=== PATIENT | male | born 1970 | race Caucasian/White ===

== ENCOUNTER 2017-03-28 11:52 | Inpatient (IN) | payer SELFPAY ==
[2017-03-28] MEDS ORDERED: MORPHINE IV ONE (12:35)
--- NOTE | 2017-03-28 12:43 | Emergency Department Report ---
HPI - General Chief Complaint: Dyspnea/Respdistress Time Seen by Provider: 03/28/17 12:11 - HPI HPI: This is a 47-year-old male presents to the emergency department by EMS from home with complaint of shortness of breath. The patient has a history of stage III pancreatic cancer and recurrent left long effusions. He was supposed to be getting ready to go to the [facility] physician, his oncologist, for a thoracentesis when he became very nauseated and ran to the bathroom to vomit. At that point he became short of breath. EMS was called and found the patient to have a pulse ox on room air of 88%. He was placed on a nonrebreather and his sats went up to a normal level. Getting home hospice care but he is a full code at this time. No recent travel or sick contacts at home. The patient used to be on blood thinners but no longer takes them. He denies any chest pain. He denied any fever but does present with a low-grade fever here. He did not take anything for symptoms prior to presentation. ED Past Medical Hx - Past Medical History Hx of Cancer: Yes (Stage 3 pancreatic) - Surgical History Past Surgical History?: Yes Additional Surgical History: part of pancreas - Social History Smoking Status: Former Smoker Substance Use Type: None - Medications Home Medications: Home Medications Medication Instructions Recorded Confirmed Last Taken Type Amoxicillin/K Clav Tab [Augmentin 1 each PO Q8HR 03/28/17 03/28/17 03/27/17 History 500 MG TAB] Morphine Sulfate [Morphine Sulfate 15 mg PO Q4H 03/28/17 03/28/17 03/27/17 History ER] Prochlorperazine [Compazine] 10 mg PO Q8HR 03/28/17 03/28/17 03/27/17 History ED Review of Systems ROS: Stated complaint: SHABBIR Other details as noted in HPI Comment: All other systems reviewed and negative Constitutional: denies: chills, diaphoresis Eyes: denies: eye pain, eye discharge, vision change ENT: denies: ear pain, throat pain Respiratory: shortness of breath Cardiovascular: denies: chest pain Gastrointestinal: nausea, vomiting. denies: abdominal pain Genitourinary: denies: urgency, dysuria Musculoskeletal: denies: back pain, joint swelling, arthralgia Skin: denies: rash, lesions Neurological: denies: headache, weakness, paresthesias Physical Exam - Physical Exam Vital Signs: Vital Signs 03/28/17 11:57 Temperature 100.6 F H Pulse Rate 140 H Respiratory 33 H Rate Blood Pressure 129/80 O2 Sat by Pulse 100 Oximetry Physical Exam: GENERAL: Patient is ill-appearing. Cachectic. HEENT: Normocephalic. Atraumatic. Extraocular motions are intact. Patient has moist mucous membranes. Pupils equal reactive to light bilaterally. NECK: Supple. Trachea is midline. CHEST/LUNGS: There are no lung sounds heard to the left hemithorax. There is tachypnea and some supraclavicular accessory muscle use. There is respiratory distress noted. HEART/CARDIOVASCULAR: Regular. There is moderate tachycardia. There is no gallop rub or murmur. ABDOMEN: Abdomen is soft, nontender. Patient has normal bowel sounds. There is no abdominal distention. SKIN: Skin is warm and dry. NEURO: The patient is awake, alert. The patient is cooperative. The patient has no focal neurologic deficits. MUSCULOSKELETAL: There is no tenderness or deformity. There is no evidence of acute injury. ED Course Vital Signs 03/28/17 11:57 Temperature 100.6 F H Pulse Rate 140 H Respiratory 33 H Rate Blood Pressure 129/80 O2 Sat by Pulse 100 Oximetry - Consultations Consultation #1: I had multiple conversations with the radiologist. First the thought was that the lung was atelectatic and a CT was recommended. CT that showed concern for empyema. At this point radiology did not feel that they are able to do a ultrasound-guided thoracentesis as the chest tube was not large enough for draining empyema. I then spoke with vascular surgeon construction contractor who also says that they do not usually put in large bore chest tubes and recommended surgery. I spoke to the general surgeon on-call, Dr. Roberts, who says that he does not do thoracic surgery and does not do chest tubes. I spoke to the itinerant teacher assistant on-call, Dr. Medrano, who would have recommended a diagnostic thoracentesis but at this point says he will be in contact with the admitting hospitalist on how to proceed. 03/28/17 20:05 ED Medical Decision Making - Lab Data Result diagrams: 03/28/17 12:35 03/28/17 12:35 - EKG Data -: EKG Interpreted by Me EKG shows normal: sinus rhythm, axis, intervals, QRS complexes, ST-T waves Rate: tachycardia (138 bpm) - EKG Data When compared to previous EKG there are: previous EKG unavailable Interpretation: other (Sinus Tachycardia at 138 bpm) - Radiology Data Radiology results: report reviewed CT angiography of the chest including 3-D reconstructed images. History: Shortness of breath and elevated d-dimer. Findings: There is a huge left pleural effusion with associated compressive atelectasis of the left lung. There are multiple air bubbles throughout the pleural fluid collection suggesting the possibility of an empyema. Additionally, the CT numbers measure greater than water. Aerated lung is seen at the apex. There is no evidence of pulmonary emboli. There are numerous noncalcified pulmonary nodules throughout the right lung. There is mild right perihilar adenopathy. No pleural fluid is seen on the right. There are multiple bony lesions within the dorsal spine several of which are purely blastic, but several appear mixed with lytic components. No compression fractures are seen. Impression: 1. Large left pleural fluid collection containing air bubbles which is worrisome for empyema or complex fluid. Severe compressive atelectasis of the left lung is also present. 2. No evidence of pulmonary emboli. 3. Multiple diffuse right pulmonary nodules consistent with metastatic disease. 4. Multiple mixed lesions throughout the dorsal spine consistent with metastatic disease. Procedure(s): XR chest 1V ap Accession Number(s): [id number] cc: YULISSA MCNAMARA DO Fluoro Time In Minutes: Portable chest: SOB. The left chest is almost completely opaque. There is some lucency at the apex. No vascular markings noted. The right chest is generally clear although there may be mild vascular distention. The cardiac silhouette is obscured. These findings are new compared to prior exam in August 2015. Impression: The left pulmonary opacity may be due to consolidation or combination with effusion. - Medical Decision Making 47 year male presents with shortness of breath and hypoxia after having some nausea and vomiting on his way to get a thoracentesis done. He presents with the idea that he has a left-sided pleural effusion. Chest x-ray does show a adonay out left lung. Labs show a leukocytosis of 27,000 with bandemia and the patient has a fever concerning for sepsis. At first the concern was that it was just atelectasis of the lung so a CT was done for better differentiation as well as to rule out a PE. There was no pulmonary embolism but there is metastatic lesions seen to the thorax and spine from his pancreatic primary cancer and the effusion now appears to be more consistent with an empyema. This does not appear to be something that is able to be done by ultrasound- guided thoracentesis through interventional radiology. Patient was placed on Levaquin and eventually Zosyn. The patient was admitted to the hospitalist, Dr. Nova, who has taken over and will decide on consultations for any intervention for this empyema (continue with IV antibiotics and pain control. Once the patient was placed on a nonrebreather his respiratory distress improved if not resolved and he is now able to be on a nasal cannula without any hypoxia or return of his tachypnea or distress. - Differential Diagnosis malignancy, pleural effusion, CHF, emphysema, pneumonia Critical Care Time: Yes Critical care time in (mins) excluding proc time.: 35 Critical care attestation.: If time is entered above; I have spent that time in minutes in the direct care of this critically ill patient, excluding procedure time. Critical care time was spent on this patient and his initial evaluation, multiple re-evaluations, ordering and interpretation of labs, ordering and interpretation of imaging, discussion with 2 different radiologists, discussion with the itinerant teacher assistant, multiple discussions with family, discussion with the admitting hospitalist, and disposition planning. Critical Care Time: 35 minutes ED Disposition Clinical Impression: Empyema of lung Sepsis Qualifiers: Sepsis type: sepsis due to unspecified organism Qualified Code(s): A41.9 - Sepsis, unspecified organism Pancreatic cancer Qualifiers: Pancreatic malignancy location: unspecified Qualified Code(s): C25.9 - Malignant neoplasm of pancreas, unspecified Metastasis Qualifiers: Area of secondary neoplastic involvement: unspecified site Qualified Code(s): C79.9 - Secondary malignant neoplasm of unspecified site Leukocytosis Qualifiers: Leukocytosis type: bandemia Qualified Code(s): D72.825 - Bandemia Anemia Qualifiers: Anemia type: unspecified type Qualified Code(s): D64.9 - Anemia, unspecified Disposition: 09 OP ADMIT IP TO THIS HOSP Is pt being admited?: Yes Condition: Serious Referrals: PRIMARY CARE, [Primary Care Provider] - 3-5 Days Time of Disposition: 20:13
[2017-03-28] MEDS ORDERED: NACL 0.9% 1000 ML 1,000 ML ONE (12:49)
--- NOTE | 2017-03-28 12:49 | XRay Report ---
Portable chest: SOB. The left chest is almost completely opaque. There is some lucency at the apex. No vascular markings noted. The right chest is generally clear although there may be mild vascular distention. The cardiac silhouette is obscured. These findings are new compared to prior exam in August 2015. Impression: The left pulmonary opacity may be due to consolidation or combination with effusion.
--- NOTE | 2017-03-28 12:53 | Admit Criteria Form ---
Admission Criteria Documentation: PULMONARY DISEASE GRG Clinical Indications for Admission to Inpatient Care ( Place 'X' for any and all applicable criteria): Hospital admission is needed for appropriate care of the patient because of 1 or more of the following(1)(2): [ ]I. Impending or actual respiratory arrest. See Respiratory Failure GRG guideline for severe respiratory disease and long-term mechanical ventilation patients. (3)(4) (5) [ ]II. Severe airflow or ventilation abnormalities (not responsive to emergency and observation care treatment as appropriate) as indicated by 1 or more of the following (6)(7)(8)(9) : [ ]a) PCO2 greater than 42 mm Hg (5.6 kPa) and pH less than 7.35 (new) [ ]b) Documented PCO2 increased more than 5 mm Hg (0.7 kPa) from disease baseline [ ]c) Airflow measurements[A] less than 60% of previous best or predicted (eg, peak expiratory flow rate less than 300 L/min) despite intensive emergent treatment(B) [ ]d) Required respiratory treatments that are performable only in acute inpatient setting [X ]III. Severe respiratory findings (not responsive to emergency and observation care treatment as appropriate) including 1 or more of the following(6)(9)(10): [ X]a) Respiratory distress as indicated by ALL of the following(6)(11) : [X ]i) Patient with 1 or more of the following: [X ]1) Dyspnea (difficulty breathing) [ X]2) Tachypnea [ ]3) Abnormal breathing pattern (eg, chest retractions) [ ]4) Other evidence of difficulty breathing [X ]ii) Evidence of respiratory compromise indicated by 1 or more of the following: [X ]1) Hypoxemia [ ]2) Altered mental status [ ]3) Other evidence of respiratory compromise (eg, pulmonary edema on chest x-ray) [ ]b) Stridor [ ]c) Gross hemoptysis(12) [ ]d) Acute cyanosis [ ]IV. Chronic lung disease with severe deterioration (not responsive to emergency and observation care treatment as appropriate) as indicated by 1 or more of the following(7) (13): [ ]a) SaO2 5% below baseline in patient with chronic hypoxemia [ ]b) New requirement for supplemental oxygen to keep SaO2 at baseline or acceptable level [ ]c) Required supplemental oxygen performable only in acute inpatient setting [ ]d) Severe airflow or ventilation abnormalities [ ]e) Previouslymobile patient unable to walk between rooms [ ]f) Inability to eat or sleep due to dyspnea [ ]g) Altered mental status that is severe or persistent [ ]V. Empyema or lung abscess(14)(15) [ ]Vl. Severe atelectasis or lung collapse(16)(17) [ ][place]. Tuberculosis requiring inpatient treatment as indicated by 1 or more of the following(18)(19)(20)(21): [ ]a) Diagnosis suspected (eg, symptomatic patient from endemic area or in high-risk population, with abnormal chest imaging) and cannot be ruled out within observation care timeframe (ie, sputum analysis, nucleic acid amplification techniques not rapidly available or not diagnostic) [ ]b) Severely symptomatic patient (eg, Hypoxemia, Hemodynamic instability, Tachypnea) [ ]c) Lzngi-czoy-yteamqwsa infection suspected in newly diagnosed patient (eg, treatment regimen may require near-term adjustment) [ ]d) Newly diagnosed patient at high-risk of short-term deterioration (eg, HIV positive, frail, immunocompromised, chronic lung disease) [ ]e) High infectivity suspected (eg, laryngeal disease, cavitary pulmonary lesions, ongoing positivity of sputum) and 1 or more of the following: [ ]i) Unexposed household contacts at high risk (eg, immunocompromised, elderly, infants, chronic lung disease) [ ]ii) Patient unable or unwilling to avoid exposing others (eg, significant psychiatric disease, substance abuse, developmental disability) [ ]f) Complication of tuberculosis requiring inpatient treatment (eg , constrictive pericarditis, tubercular meningitis) [ ]g) Hospitalization mandated by public health authority (eg, patient continually noncompliant with directly observed therapy) [ ]VIII. High-risk pulmonary infection as indicated by 1 or more of the following(22)(23)(24)(25): [ ]a) Temperature less than 95 degrees F (35 degrees C) or greater than 103.1 degrees F (39.5 degrees C) [ ]b) Hemodynamic instability [ ]c) Immunocompromised patient (eg, AIDS, post transplant, neutropenic)(26)(27) [ ]d) History of severe COPD(28) [ ]e) History of severely symptomatic congestive heart failure(29) [ ]f) Other high-risk comorbidity (eg, poorly controlled diabetes, cirrhosis, chronic renal insufficiency) [ ]g) Hypoxemia [ ]h) severe stridor (30) [ ]i) Outpatient, observation, or recovery facility therapy has failed, is not appropriate, or is not feasible. [ ]IX. Complications of tracheostomy that remains after emergency or observation level care(31)(32)(33)(34) [ ]X. Respiratory complications of organ transplant (eg, rejection, respiratory failure, respiratory infection)(27) [ ]XI. Severe pulmonary arterial hypertension or pulmonary vascular disease requiring inpatient care indicated by 1 or more of the following(35)(36)(37)(38): [ ]a) Initiation or change of vasodilators (IV, subcutaneous, or inhaled) or other vasoactive medications needed [ ]b) IV anticoagulation needed (eg, immediate anticoagulation necessary, alternatives not appropriate) [ ]c) Arterial or pulmonary artery catheter monitoring needed due to infusion or other treatment [ ]XII. Cystic fibrosis requiring inpatient care as indicated by 1 or more of the following(39)(40): [ ]a) Severe exacerbation that does not respond to intensified home therapy(41) [ ]b) Severe exacerbation with patient unable to perform prescribed treatments at home [ ]c) Pneumonia [ ]d) Pneumothorax(42) [ ]e) Atelectasis [ ]f) Hemoptysis(43) [ ]XIII. Bronchiectasis requiring inpatient care as indicated by 1 or more of the following(44)(45): [ ]a) Respiratory distress [ ]b) Severe exacerbation and outpatient or observation care therapy has failed, is not appropriate, or is not feasible. [ ]XIV. Sarcoidosis requiring inpatient care as indicated by 1 or more of the following(46)(47)(48): [ ]a) Respiratory distress [ ]b) Cardiac involvement with arrhythmia(49) [ ]c) Outpatient or observation care therapy has failed, is not appropriate, or is not feasible. [ ]XV. Intestitial lung disease requiring inpatient care as indicated by 1 or more of the following(50)(51): [ ]a) Respiratory distress [ ]b) Severe exacerbation and outpatient or observation care therapy has failed, is not appropriate, or is not feasible [ ]XVI. Allergic pneumonitis requiring inpatient care as indicated by 1 or more of the following(52): [ ]a) Respiratory distress [ ]b) Acute eosinophilic pneumonia [ ]c) [place] Stephanie with cardiac involvement [ ]d) Outpatient or observation care therapy has failed, is not appropriate, or is not feasible [ ]XVIl. Severe right heart failure requiring inpatient care as indicated by 1 or more of the following(35)(53)(54): [ ]a) Respiratory distress [ ]b) Debilitating anasarca that remains after emergency or observation level care (eg, tissue [ ]c) breakdown with severe infection, inability to void due to edema) [C](41)(42)(43)(44) [ ]d) Hemodynamic instability [ ]e) Syncope [ ]f) Angina that requires inpatient care (eg, not treatable in emergency or observation level of care) [ ]g) Increasing organ failure (eg, liver congestion with significant and worsening or new elevation of transaminases) [ ]XVIll. Injury requiring inpatient care (medical) as indicated by 1 or more of the following(59)(60)(61) [ ]a) Significant inhalation injury (eg, smoke inhalation, other toxic inhalation)(62)(63)(64) [ ]b) Airway obstruction that remains or is unstable after emergency or observation level care(65)(66) [ ]c) Severe pain requiring acute inpatient management [ ]d) Lung contusion(67) [ ]e) Flail chest(68) [ ]f) Bronchial tree injury [ ]g) Air or fat emboli [ ]h) Other injury not treatable in emergency or observation level care (eg, hemothorax)(55) [ ]XlX. Pulmonary hemorrhage or significant hemoptysis(12)(43)(69) [ ]XXl. Complications of transplanted lung indicated by 1 or more of the following(70)(71) [ ]a) Acute graft rejection requiring inpatient management (eg, intravenous immunosuppression)(72)(73)(74) [ ]b) Failure of transplant lung as indicated by 1 or more of the following(75)(76): [ ]i) Anastomotic leak [ ]ii) Airway ischemia or necrosis [ ]iii) Airway fistula [ ]iv) Obstructing granulation tissue requiring intervention [ ]v) Bronchial stenosis or stricture requiring intervention [ ]vi) Tracheobronchomalacia requiring intervention [ ]vii) Severe airflow or ventilation abnormalities [ ]viii) Severe respiratory findings [ ]c) Infection requiring inpatient management (eg, Hemodynamic instability, need for intravenous antimicrobial treatment)(77)(78)(79)(80)(81)(82 [ ]d) Other complication of transplanted lung (eg, obliterative bronchiolitis, plastic bronchitis, thrombotic microangiopathy, constrictive pericarditis) requiring inpatient management(83)(84)(85)(86)(87) [ ]XXll. Inpatient palliative care needed.[D](88)(89)(90)(91) [X ]XXlll. Pulmonary Disease condition, symptom, or finding for which emergency and observation care have failed or are not considered appropriate. The original [facility] content created by [employer] has been revised. The portions of the content which have been revised are identified through the use of italic text or in bold, and [facility] [employer] has neither reviewed nor approved the modified material. All other unmodified content is copyright [facility]. Please see references footnoted in the original [facility] [employer] edition 2017 Admission Criteria Met: Yes
[2017-03-28] MEDS ORDERED: NACL 0.9% 1000 ML 1,000 ML IV ONE (12:59)
[2017-03-28 13:08] LABS: Mean Corpuscular HGB Conc 31 % (32-34); Mean Corpuscular Hemoglobin 32 pg (28-32); Mean Corpuscular Volume 104 fl (84-94); Platelet Count 167 K/mm3 (140-440); Red Blood Count 1.72 M/mm3 (3.65-5.03)
[2017-03-28 13:09] LABS: White Blood Count 27.1 K/mm3 (4.5-11.0)
[2017-03-28 13:14] LABS: Hemoglobin 5.5 gm/dl (11.8-15.2); Red Cell Distribution Width 33.2 % (13.2-15.2)
[2017-03-28 13:18] LABS: INR 1.62 (0.87-1.13)
[2017-03-28] MEDS ORDERED: LEVAQUIN 750MG/150ML 750 MG/150 ML BAG IV ONE (13:18)
[2017-03-28] MEDS ORDERED: NACL 0.9% 500 ML 500 ML IV ONE ×2 (13:18→21:41)
[2017-03-28 13:19] LABS: Partial Thromboplastin Time 34.3 Sec. (24.2-36.6)
[2017-03-28 13:50] LABS: Blastocytes % (Manual) 0 %
[2017-03-28 13:51] LABS: Anisocytosis 3+; Eosinophils % (Manual) 0 % (0.0-4.3); Polychromasia 1+
[2017-03-28 13:52] LABS: Schistocytes Few
[2017-03-28 13:53] LABS: Diff Status Complete
[2017-03-28 13:55] LABS: Chloride 99.6 mmol/L (98-107); Potassium 5.2 mmol/L (3.6-5.0); Sodium 135 mmol/L (137-145)
[2017-03-28 13:59] LABS: Albumin 2.4 g/dL (3.9-5); Alkaline Phosphatase 532 units/L (35-129)
[2017-03-28] MEDS ORDERED: NACL ONE (14:12)
[2017-03-28 14:34] LABS: Bilirubin,Urine SM (Negative); Blood,Urine SM (Negative); Ketones,Urine TR mg/dL (Negative); Leukocyte Esterase,Urine NEG (Negative); Mucus,Urine 1+ /HPF; Nitrite,Urine NEG (Negative)
[2017-03-28 14:49] LABS: Anion Gap 24 mmol/L; BUN/Creatinine Ratio 25.83; Blood Urea Nitrogen 31 mg/dL (9-20); Calcium 7.4 mg/dL (8.4-10.2); Carbon Dioxide 17 mmol/L (22-30)
[2017-03-28 14:55] LABS: Albumin/Globulin Ratio 0.6 %; Bilirubin,Direct 1.7 mg/dL (0-0.2); Bilirubin,Indirect 2.5 mg/dL; Total Protein 6.3 g/dL (6.3-8.2)
[2017-03-28 15:10] LABS: Glucose 148 mg/dL (75-100)
[2017-03-28 15:13] LABS: Alanine Aminotransferase 32 units/L (7-56)
--- NOTE | 2017-03-28 16:17 | Cat Scan Report ---
CT angiography of the chest including 3-D reconstructed images. History: Shortness of breath and elevated d-dimer. Findings: There is a huge left pleural effusion with associated compressive atelectasis of the left lung. There are multiple air bubbles throughout the pleural fluid collection suggesting the possibility of an empyema. Additionally, the CT numbers measure greater than water. Aerated lung is seen at the apex. There is no evidence of pulmonary emboli. There are numerous noncalcified pulmonary nodules throughout the right lung. There is mild right perihilar adenopathy. No pleural fluid is seen on the right. There are multiple bony lesions within the dorsal spine several of which are purely blastic, but several appear mixed with lytic components. No compression fractures are seen. Impression: 1. Large left pleural fluid collection containing air bubbles which is worrisome for empyema or complex fluid. Severe compressive atelectasis of the left lung is also present. 2. No evidence of pulmonary emboli. 3. Multiple diffuse right pulmonary nodules consistent with metastatic disease. 4. Multiple mixed lesions throughout the dorsal spine consistent with metastatic disease.
[2017-03-28] MEDS ORDERED: MOTRIN PO ONE ×2 (16:22→16:30)
[2017-03-28] MEDS ORDERED: ZOSYN/NS 4.5GM/100ML 4.5 GM/100 ML VIAL IV ONE (16:47)
[2017-03-28] MEDS ORDERED: NACL 0.9% 500 ML 500 ML ONE (18:38)
[2017-03-28] MEDS ORDERED: DULCOLAX PR PRN (21:32)
[2017-03-28] MEDS ORDERED: DILAUDID IV PRN ×2 (21:32→21:41)
[2017-03-28] MEDS ORDERED: ZOFRAN IV PRN (21:32)
[2017-03-28] MEDS ORDERED: MILK OF MAGNESIA PO PRN (21:32)
[2017-03-28] MEDS ORDERED: TYLENOL PO PRN (21:32)
--- NOTE | 2017-03-28 21:32 | History and Physical Report ---
History of Present Illness Date of examination: 03/28/17 Date of admission: 03/28/17 Chief complaint: Sob for couple of Hours History of present illness: HPI: This is a 47-year-old male presents to the emergency department by EMS from home with complaint of shortness of breath. The patient has a history of stage III pancreatic cancer and recurrent left long effusions. He was supposed to be getting ready to go to the [place] physician, his oncologist, for a thoracentesis when he became very nauseated and ran to the bathroom to vomit. At that point he became short of breath. EMS was called and found the patient to have a pulse ox on room air of 88%. He was placed on a nonrebreather and his sats went up to a normal level. Getting home hospice care but he is a full code at this time. No recent travel or sick contacts at home. The patient used to be on blood thinners but no longer takes them. He denies any chest pain. He denied any fever but does present with a low-grade fever here. He did not take anything for symptoms prior to presentation Past Medical History Hx of Cancer: Yes (Stage 3 pancreatic) - Surgical History Past Surgical History?: Yes Additional Surgical History: part of pancreas - Social History Smoking Status: Former Smoker Substance Use Type: None - Medications Home Medications: Home Medications Medication Instructions Recorded Confirmed Last Taken Type Amoxicillin/K Clav Tab [Augmentin 1 each PO Q8HR 03/28/17 03/28/17 03/27/17 History 500 MG TAB] Morphine Sulfate [Morphine Sulfate 15 mg PO Q4H 03/28/17 03/28/17 03/27/17 History ER] Prochlorperazine [Compazine] 10 mg PO Q8HR 03/28/17 03/28/17 03/27/17 History ROS: Stated complaint: SHABBIR Other details as noted in HPI Comment: All other systems reviewed and negative Constitutional: denies: chills, diaphoresis,Weight loss present Eyes: denies: eye pain, eye discharge, vision change ENT: denies: ear pain, throat pain Respiratory: shortness of breath Cardiovascular: denies: chest pain Gastrointestinal: nausea, vomiting. denies: abdominal pain Genitourinary: denies: urgency, dysuria Musculoskeletal: denies: back pain, joint swelling, arthralgia Skin: denies: rash, lesions Neurological: denies: headache, weakness, paresthesias Medications and Allergies Allergies Allergy/AdvReac Type Severity Reaction Status Date / Time No Known Allergies Allergy Unverified 08/18/15 19:34 Home Medications Medication Instructions Recorded Confirmed Last Taken Type Amoxicillin/K Clav Tab [Augmentin 1 each PO Q8HR 03/28/17 03/28/17 03/27/17 History 500 MG TAB] Morphine Sulfate [Morphine Sulfate 15 mg PO Q4H 03/28/17 03/28/17 03/27/17 History ER] Prochlorperazine [Compazine] 10 mg PO Q8HR 03/28/17 03/28/17 03/27/17 History Exam - Physical Exam Narrative exam: Cachectic - Constitutional Vitals: Temp Pulse Resp BP Pulse Ox 98.7 F 101 H 27 H 103/52 100 03/28/17 19:00 03/28/17 19:51 03/28/17 19:51 03/28/17 19:51 03/28/17 19:51 General appearance: Present: no acute distress, well-nourished - EENT Eyes: Present: PERRL ENT: hearing intact, clear oral mucosa - Neck Neck: Present: supple, normal ROM - Respiratory Respiratory effort: normal Respiratory: right: CTA, left: diminished - Cardiovascular Heart rate: 90 Rhythm: regular Heart Sounds: Present: S1 & S2. Absent: rub, click - Extremities Extremities: pulses symmetrical, No edema Peripheral Pulses: within normal limits - Abdominal General gastrointestinal: Present: soft, tender, distended, normal bowel sounds Male genitourinary: Present: normal - Rectal Rectal Exam: deferred - Integumentary Integumentary: Present: clear, warm, dry - Musculoskeletal Musculoskeletal: gait normal, strength equal bilaterally - Psychiatric Psychiatric: appropriate mood/affect, intact judgment & insight - Neurologic Neurologic: CNII-XII intact, moves all extremities Results - Labs CBC & Chem 7: 03/29/17 04:03 03/29/17 04:03 Labs: Laboratory Last Values WBC 27.1 K/mm3 (4.5-11.0) H 03/28/17 12:35 RBC 1.72 M/mm3 (3.65-5.03) L 03/28/17 12:35 Hgb 5.5 gm/dl (11.8-15.2) L* 03/28/17 12:35 Hct 18.0 % (35.5-45.6) L* 03/28/17 12:35 MCV 104 fl (84-94) H 03/28/17 12:35 MCH 32 pg (28-32) 03/28/17 12:35 MCHC 31 % (32-34) L 03/28/17 12:35 RDW 33.2 % (13.2-15.2) H 03/28/17 12:35 Plt Count 167 K/mm3 (140-440) 03/28/17 12:35 Add Manual Diff Complete 03/28/17 12:35 Total Counted 100 03/28/17 12:35 Seg Neutrophils % Weed Controller 03/28/17 12:35 Seg Neuts % (Manual) 71.0 % (40.0-70.0) H 03/28/17 12:35 Band Neutrophils % 25.0 % 03/28/17 12:35 Lymphocytes % (Manual) 1.0 % (13.4-35.0) L 03/28/17 12:35 Reactive Lymphs % (Man) 0 % 03/28/17 12:35 Monocytes % (Manual) 2.0 % (0.0-7.3) 03/28/17 12:35 Eosinophils % (Manual) 0 % (0.0-4.3) 03/28/17 12:35 Metamyelocytes % 1.0 % 03/28/17 12:35 Myelocytes % 0 % 03/28/17 12:35 Promyelocytes % 0 % 03/28/17 12:35 Blast Cells % 0 % 03/28/17 12:35 Nucleated RBC % 13.0 % (0.0-0.9) H 03/28/17 12:35 Seg Neutrophils # Man 19.2 K/mm3 (1.8-7.7) H 03/28/17 12:35 Band Neutrophils # 6.8 K/mm3 03/28/17 12:35 Lymphocytes # (Manual) 0.3 K/mm3 (1.2-5.4) L 03/28/17 12:35 Abs React Lymphs (Man) 0.0 K/mm3 03/28/17 12:35 Monocytes # (Manual) 0.5 K/mm3 (0.0-0.8) 03/28/17 12:35 Eosinophils # (Manual) 0.0 K/mm3 (0.0-0.4) 03/28/17 12:35 Basophils # (Manual) 0.0 K/mm3 (0.0-0.1) 03/28/17 12:35 Metamyelocytes # 0.3 K/mm3 03/28/17 12:35 Myelocytes # 0.0 K/mm3 03/28/17 12:35 Promyelocytes # 0.0 K/mm3 03/28/17 12:35 Blast Cells # 0.0 K/mm3 03/28/17 12:35 WBC Morphology Not Reportable 03/28/17 12:35 Hypersegmented Neuts Not Reportable 03/28/17 12:35 Hyposegmented Neuts Not Reportable 03/28/17 12:35 Hypogranular Neuts Not Reportable 03/28/17 12:35 Smudge Cells Not Reportable 03/28/17 12:35 Toxic Granulation Not Reportable 03/28/17 12:35 Toxic Vacuolation Not Reportable 03/28/17 12:35 Dohle Bodies Not Reportable 03/28/17 12:35 Pelger-Huet Anomaly Not Reportable 03/28/17 12:35 John Rods Not Reportable 03/28/17 12:35 Platelet Estimate Not Reportable 03/28/17 12:35 Clumped Platelets Not Reportable 03/28/17 12:35 Plt Clumps, EDTA Not Reportable 03/28/17 12:35 Large Platelets Not Reportable 03/28/17 12:35 Giant Platelets Not Reportable 03/28/17 12:35 Platelet Satelliting Not Reportable 03/28/17 12:35 Plt Morphology Comment Not Reportable 03/28/17 12:35 RBC Morphology Not Reportable 03/28/17 12:35 Dimorphic RBCs Yes 03/28/17 12:35 Polychromasia 1+ 03/28/17 12:35 Hypochromasia Not Reportable 03/28/17 12:35 Poikilocytosis Not Reportable 03/28/17 12:35 Anisocytosis 3+ 03/28/17 12:35 Microcytosis Not Reportable 03/28/17 12:35 Macrocytosis Not Reportable 03/28/17 12:35 Spherocytes Not Reportable 03/28/17 12:35 Pappenheimer Bodies Not Reportable 03/28/17 12:35 Sickle Cells Not Reportable 03/28/17 12:35 Target Cells Not Reportable 03/28/17 12:35 Tear Drop Cells Not Reportable 03/28/17 12:35 Ovalocytes Not Reportable 03/28/17 12:35 Helmet Cells Not Reportable 03/28/17 12:35 [place] Bodies Not Reportable 03/28/17 12:35 [place] Rings Not Reportable 03/28/17 12:35 Segun Cells Not Reportable 03/28/17 12:35 Bite Cells Not Reportable 03/28/17 12:35 Crenated Cell Not Reportable 03/28/17 12:35 Elliptocytes Not Reportable 03/28/17 12:35 Acanthocytes (Spur) Not Reportable 03/28/17 12:35 Rouleaux Not Reportable 03/28/17 12:35 Hemoglobin C Crystals Not Reportable 03/28/17 12:35 Schistocytes Few 03/28/17 12:35 Malaria parasites Not Reportable 03/28/17 12:35 [place] Bodies Not Reportable 03/28/17 12:35 Hem Pathologist Commnt No 03/28/17 12:35 PT 20.1 Sec. (12.2-14.9) H 03/28/17 12:35 INR 1.62 (0.87-1.13) H 03/28/17 12:35 APTT 34.3 Sec. (24.2-36.6) 03/28/17 12:35 D-Dimer > 71915 ng/mlDDU (0-234) H 03/28/17 12:35 Sodium 135 mmol/L (137-145) L 03/28/17 12:35 Potassium 5.2 mmol/L (3.6-5.0) H 03/28/17 12:35 Chloride 99.6 mmol/L (98-107) 03/28/17 12:35 Carbon Dioxide 17 mmol/L (22-30) L 03/28/17 12:35 Anion Gap 24 mmol/L 03/28/17 12:35 BUN 31 mg/dL (9-20) H 03/28/17 12:35 Creatinine 1.2 mg/dL (0.8-1.5) 03/28/17 12:35 Estimated GFR > 60 ml/min 03/28/17 12:35 BUN/Creatinine Ratio 25.83 % 03/28/17 12:35 Glucose 148 mg/dL (75-100) H 03/28/17 12:35 Lactic Acid 4.20 mmol/L (0.7-2.0) H* 03/28/17 13:28 Calcium 7.4 mg/dL (8.4-10.2) L 03/28/17 12:35 Total Bilirubin 4.20 mg/dL (0.1-1.2) H 03/28/17 12:35 Direct Bilirubin 1.7 mg/dL (0-0.2) H 03/28/17 12:35 Indirect Bilirubin 2.5 mg/dL 03/28/17 12:35 AST 99 units/L (5-40) H 03/28/17 12:35 ALT 32 units/L (7-56) 03/28/17 12:35 Alkaline Phosphatase 532 units/L (35-129) H 03/28/17 12:35 Ammonia 36.0 umol/L (25-60) 03/28/17 12:35 Troponin T < 0.010 ng/mL (0.00-0.029) 03/28/17 12:35 Total Protein 6.3 g/dL (6.3-8.2) 03/28/17 12:35 Albumin 2.4 g/dL (3.9-5) L 03/28/17 12:35 Albumin/Globulin Ratio 0.6 % 03/28/17 12:35 Urine Color [place] (Yellow) 03/28/17 13:53 Urine Turbidity Clear (Clear) 03/28/17 13:53 Urine pH 5.0 (5.0-7.0) 03/28/17 13:53 Ur Specific [place] 1.021 (1.003-1.030) 03/28/17 13:53 Urine Protein 30 mg/dl mg/dL (Negative) 03/28/17 13:53 Urine Glucose (UA) Neg mg/dL (Negative) 03/28/17 13:53 Urine Ketones Tr mg/dL (Negative) 03/28/17 13:53 Urine Blood Sm (Negative) 03/28/17 13:53 Urine Nitrite Neg (Negative) 03/28/17 13:53 Urine Bilirubin Sm (Negative) 03/28/17 13:53 Urine Ictotest Negative (Negative) 03/28/17 13:53 Urine Urobilinogen 4.0 mg/dL (<2.0) 03/28/17 13:53 Ur Leukocyte Esterase Neg (Negative) 03/28/17 13:53 Urine WBC (Auto) 6.0 /HPF (0.0-6.0) 03/28/17 13:53 Urine RBC (Auto) 3.0 /HPF (0.0-6.0) 03/28/17 13:53 U Epithel Cells (Auto) < 1.0 /HPF (0-13.0) 03/28/17 13:53 Urine Mucus 1+ /HPF 03/28/17 13:53 Blood Type O POSITIVE 03/28/17 13:28 Antibody Screen Negative 03/28/17 13:28 Crossmatch See Detail 03/28/17 13:28 - Imaging and Cardiology Chest x-ray: report reviewed (Large L Pleural effusion) CT scan - chest: report reviewed (L pleural effusion cont air bubbles worrisome for Empyema or complex fluid.Multiple nodules on rt Lung and T spine c/w Metastatic disease) Assessment and Plan Advance Directives: Yes (FC) VTE prophylaxis?: Chemical Plan of care discussed with patient/family: Yes - Patient Problems (1) Empyema of lung Current Visit: Yes Status: Acute Plan to address problem: IV Zosyn and Vancomycin for now Consulted Dr Dov Gomez who also does thoracic surgery.He will come in if necessary (2) Sepsis Current Visit: Yes Status: Acute Qualifiers: Sepsis type: sepsis due to unspecified organism Qualified Code(s): A41.9 - Sepsis, unspecified organism Plan to address problem: Cont IV Zosyn and Vancomycin (3) Pancreatic cancer Current Visit: Yes Status: Chronic Qualifiers: Pancreatic malignancy location: body of pancreas Qualified Code(s): C25.1 - Malignant neoplasm of body of pancreas Plan to address problem: Stg 4 Poor prognosis DNR to be discussed with family (4) Malnutrition Current Visit: Yes Status: Chronic Qualifiers: Malnutrition type: M Protein-calorie malnutrition severity: moderate Qualified Code(s): E44.0 - Moderate protein-calorie malnutrition Plan to address problem: Sec to Malignancy and Metastasis (5) DVT prophylaxis Current Visit: Yes Status: Acute Plan to address problem: on Lovenox
[2017-03-28] MEDS ORDERED: VANCOMYCIN 1,250 MG in NACL 0.9% 250ML 250 ML IV ONE (22:00)
[2017-03-28] MEDS ORDERED: VANCOMYCIN PHARMACY TO DOSE IV SCH (22:00)
[2017-03-28] MEDS ORDERED: MS CONTIN ER PO SCH (22:00)
[2017-03-28] MEDS: MORPHINE PO SCH (22:31)
[2017-03-28] MEDS: COMPAZINE PO SCH (22:31)
[2017-03-29] MEDS: D5NS 1,000 ML IV SCH ×2 (00:39→23:02)
[2017-03-29] MEDS: ZOSYN/NS 4.5GM/100ML 4.5 GM/100 ML VIAL IV SCH ×3 (02:13→17:40)
[2017-03-29] MEDS: MORPHINE PO SCH ×6 (02:13→21:28)
[2017-03-29 04:46] LABS: Hematocrit 20.4 % (35.5-45.6); Hemoglobin 6.7 gm/dl (11.8-15.2); Mean Corpuscular HGB Conc 33 % (32-34); Mean Corpuscular Hemoglobin 31 pg (28-32); Mean Corpuscular Volume 95 fl (84-94); Platelet Count 118 K/mm3 (140-440); Red Blood Count 2.15 M/mm3 (3.65-5.03)
[2017-03-29 04:48] LABS: Red Cell Distribution Width 22.5 % (13.2-15.2); White Blood Count 21.4 K/mm3 (4.5-11.0)
[2017-03-29 05:04] LABS: Alanine Aminotransferase 27 units/L (7-56); Albumin 2.1 g/dL (3.9-5); Albumin/Globulin Ratio 0.6 %; Alkaline Phosphatase 438 units/L (35-129); Anion Gap 18 mmol/L; Blood Urea Nitrogen 28 mg/dL (9-20); Calcium 7.7 mg/dL (8.4-10.2); Carbon Dioxide 19 mmol/L (22-30); Chloride 102.7 mmol/L (98-107); Glucose 224 mg/dL (75-100); Potassium 4.4 mmol/L (3.6-5.0); Sodium 135 mmol/L (137-145); Total Protein 5.5 g/dL (6.3-8.2)
[2017-03-29] MEDS: COMPAZINE PO SCH ×3 (05:26→21:28)
[2017-03-29 06:23] LABS: Blastocytes % (Manual) 0 %
[2017-03-29 06:24] LABS: Anisocytosis 3+; Basophils % (Manual) 0 % (0.0-1.8); Polychromasia 1+; Schistocytes Rare
[2017-03-29 06:25] LABS: Diff Status Complete; Hypochromasia Few; Platelet Estimate Consistent w Auto; Poikilocytosis Few; Stomatocytes Few
[2017-03-29] MEDS ORDERED: NACL 0.9% 500 ML 500 ML IV ONE (06:30)
[2017-03-29] MEDS ORDERED: LOVENOX SUB-Q SCH (10:00)
[2017-03-29] MEDS: VANCOMYCIN/NS 1 GM/250 ML 1 GM/250 ML BAG IV SCH ×2 (11:42→23:01)
[2017-03-29] MEDS: LOVENOX SUB-Q SCH (12:03)
--- NOTE | 2017-03-29 12:27 | Consultation ---
History of Present Illness Consult date: 03/29/17 Requesting physician: JESSICA HAGAN Reason for consult: pleural effusion History of present illness: PULMONARY/CCM CONSULT NOTE (Full dictation # [id number]) Please see dictated notes for full details Medications and Allergies Allergies Allergy/AdvReac Type Severity Reaction Status Date / Time No Known Allergies Allergy Unverified 08/18/15 19:34 Home Medications Medication Instructions Recorded Confirmed Last Taken Type Amoxicillin/K Clav Tab [Augmentin 1 each PO Q8HR 03/28/17 03/28/17 03/27/17 History 500 MG TAB] Morphine Sulfate [Morphine Sulfate 15 mg PO Q4H 03/28/17 03/28/17 03/27/17 History ER] Prochlorperazine [Compazine] 10 mg PO Q8HR 03/28/17 03/28/17 03/27/17 History Active Meds: Active Medications Acetaminophen (Tylenol) 650 mg PO Q4H PRN PRN Reason: Pain MILD(1-3)/Fever >100.5/THOMAS Bisacodyl (Dulcolax) 10 mg DC QDAY PRN PRN Reason: Constipation unrelieved by MOM Enoxaparin Sodium (Lovenox) 40 mg SUB-Q QDAY@1000 KEVIN Last Admin: 03/29/17 12:03 Dose: 40 mg Hydromorphone HCl (Dilaudid) 2 mg IV Q3H PRN PRN Reason: Pain , Severe (7-10) Dextrose/Sodium Chloride (D5ns) 1,000 mls @ 100 mls/hr IV DIRECT KEVIN Last Admin: 03/29/17 00:39 Dose: 100 mls/hr Piperacillin Sod/Tazobactam Sod (Zosyn/Ns 4.5gm/100ml) 4.5 gm in 100 mls @ 200 mls/hr IV Q8H KEVIN PRN Reason: Protocol Last Admin: 03/29/17 11:53 Dose: 200 mls/hr Vancomycin HCl (Vancomycin/Ns 1 Gm/250 Ml) 1 gm in 250 mls @ 166.667 mls/hr IV Q12H [facility] Last Admin: 03/29/17 11:42 Dose: 166.667 mls/hr Magnesium Hydroxide (Milk Of Magnesia) 30 ml PO Q4H PRN PRN Reason: Constipation Morphine Sulfate (Morphine) 15 mg PO Q4H [facility] Last Admin: 03/29/17 12:04 Dose: Not Given Ondansetron HCl (Zofran) 4 mg IV Q3H PRN PRN Reason: N/V unrelieved by Nirmala Prochlorperazine Maleate (Compazine) 10 mg PO Q8HR [facility] Last Admin: 03/29/17 05:26 Dose: 10 mg Vancomycin HCl (Vancomycin Pharmacy To Dose) 1 each IV PKCONSULT [facility] PRN Reason: Protocol Physical Examination Vital signs: Vital Signs Pulse Resp 140 H 34 H 03/28/17 11:50 03/28/17 11:50 Results - Laboratory Findings CBC and BMP: 03/30/17 04:28 03/30/17 04:28 PT/INR, D-dimer PT 20.1 Sec. (12.2-14.9) H 03/28/17 12:35 INR 1.62 (0.87-1.13) H 03/28/17 12:35 D-Dimer > 00632 ng/mlDDU (0-234) H 03/28/17 12:35 Abnormal lab findings: Abnormal Labs 03/29/17 03/29/17 04:03 04:03 WBC 21.4 H RBC 2.15 L Hgb 6.7 L Hct 20.4 L MCV 95 H RDW 22.5 H Plt Count 118 L Lymphocytes % (Manual) 9.0 L Nucleated RBC % 19.0 H Seg Neutrophils # Man 11.3 H Monocytes # (Manual) 1.5 H Sodium 135 L Carbon Dioxide 19 L BUN 28 H Creatinine 0.7 L Glucose 224 H Calcium 7.7 L Total Bilirubin 5.60 H AST 86 H Alkaline Phosphatase 438 H Total Protein 5.5 L Albumin 2.1 L
[2017-03-29 14:28] LABS: Hematocrit 23.3 % (35.5-45.6); Hemoglobin 7.7 gm/dl (11.8-15.2)
--- NOTE | 2017-03-29 15:42 | Consultation ---
History of Present Illness Reason for consult: other (Left pleural effusion) Chief complaint: shortness of breath - History of present illness History of present illness: 47 y/o male with pancreatic cancer with a known left pleural effusion which has been treated for symptom relief monthly for the past 3 months and is admitted for progressive shortness of breath. Last thoracentesis was one month ago at another institution. They are not aware if the fluid has been sent for cytology to diagnosis malignant effusion. They had been told about thoracosopy with pleuradesis in the past and were planning on discussing it again with their oncologist before this admission. He was recently being treated for a ' rectal infection' with augmentin. Past History Past Medical History: cancer, DVT Past Surgical History: Other (Port placement; pancreatic cancer surgery) Social history: lives with family, smoking. denies: alcohol abuse Medications and Allergies Allergies Allergy/AdvReac Type Severity Reaction Status Date / Time No Known Allergies Allergy Unverified 08/18/15 19:34 Home Medications Medication Instructions Recorded Confirmed Last Taken Type Amoxicillin/K Clav Tab [Augmentin 1 each PO Q8HR 03/28/17 03/28/17 03/27/17 History 500 MG TAB] Morphine Sulfate [Morphine Sulfate 15 mg PO Q4H 03/28/17 03/28/17 03/27/17 History ER] Prochlorperazine [Compazine] 10 mg PO Q8HR 03/28/17 03/28/17 03/27/17 History Active Meds: Active Medications Acetaminophen (Tylenol) 650 mg PO Q4H PRN PRN Reason: Pain MILD(1-3)/Fever >100.5/THOMAS Bisacodyl (Dulcolax) 10 mg [place] QDAY PRN PRN Reason: Constipation unrelieved by MOM Enoxaparin Sodium (Lovenox) 40 mg SUB-Q QDAY@1000 KEVIN Last Admin: 03/29/17 12:03 Dose: 40 mg Hydromorphone HCl (Dilaudid) 2 mg IV Q3H PRN PRN Reason: Pain , Severe (7-10) Dextrose/Sodium Chloride (D5ns) 1,000 mls @ 100 mls/hr IV DIRECT KEVIN Last Admin: 03/29/17 00:39 Dose: 100 mls/hr Piperacillin Sod/Tazobactam Sod (Zosyn/Ns 4.5gm/100ml) 4.5 gm in 100 mls @ 200 mls/hr IV Q8H KEVIN PRN Reason: Protocol Last Admin: 03/29/17 11:53 Dose: 200 mls/hr Vancomycin HCl (Vancomycin/Ns 1 Gm/250 Ml) 1 gm in 250 mls @ 166.667 mls/hr IV Q12H [facility] Last Admin: 03/29/17 11:42 Dose: 166.667 mls/hr Magnesium Hydroxide (Milk Of Magnesia) 30 ml PO Q4H PRN PRN Reason: Constipation Morphine Sulfate (Morphine) 15 mg PO Q4H [facility] Last Admin: 03/29/17 12:04 Dose: Not Given Ondansetron HCl (Zofran) 4 mg IV Q3H PRN PRN Reason: N/V unrelieved by Nirmala Prochlorperazine Maleate (Compazine) 10 mg PO Q8HR [facility] Last Admin: 03/29/17 05:26 Dose: 10 mg Vancomycin HCl (Vancomycin Pharmacy To Dose) 1 each IV PKCONSULT KEVIN PRN Reason: Protocol Review of Systems All systems: negative Exam Vital Signs Pulse Resp 140 H 34 H 03/28/17 11:50 03/28/17 11:50 - General physical appearance Positive: no distress, cathetic, chronically ill - Eyes Positive: normal occular movement - Neck Positive: trachea midline, no venous distension - Respiratory Positive: normal expansion dullness: left, absent breath sounds: left - Cardiovascular Rhythm: regular - Extremities Extremities: Full ROM - Abdomen Abdomen: Present: soft, bowel sounds normal. Absent: tender - Neurologic Neurologic: alert and oriented to time, place and person - Psychiatric Psychiatric: appropriate mood/affect, intact judgment & insight, memory intact Results - Labs 03/29/17 14:09 03/29/17 04:03 Abnormal lab results 03/29/17 03/29/17 03/29/17 Range/Units 04:03 04:03 14:09 WBC 21.4 H (4.5-11.0) K/mm3 RBC 2.15 L (3.65-5.03) M/mm3 Hgb 6.7 L 7.7 L (11.8-15.2) gm/dl Hct 20.4 L 23.3 L (35.5-45.6) % MCV 95 H (84-94) fl RDW 22.5 H (13.2-15.2) % Plt Count 118 L (140-440) K/mm3 Lymphocytes % (Manual) 9.0 L (13.4-35.0) % Nucleated RBC % 19.0 H (0.0-0.9) % Seg Neutrophils # Man 11.3 H (1.8-7.7) K/mm3 Monocytes # (Manual) 1.5 H (0.0-0.8) K/mm3 Sodium 135 L (137-145) mmol/L Carbon Dioxide 19 L (22-30) mmol/L BUN 28 H (9-20) mg/dL Creatinine 0.7 L (0.8-1.5) mg/dL Glucose 224 H (75-100) mg/dL Calcium 7.7 L (8.4-10.2) mg/dL Total Bilirubin 5.60 H (0.1-1.2) mg/dL AST 86 H (5-40) units/L Alkaline Phosphatase 438 H (35-129) units/L Total Protein 5.5 L (6.3-8.2) g/dL Albumin 2.1 L (3.9-5) g/dL Diabetes panel 03/29/17 Range/Units 04:03 Sodium 135 L (137-145) mmol/L Potassium 4.4 (3.6-5.0) mmol/L Chloride 102.7 (98-107) mmol/L Carbon Dioxide 19 L (22-30) mmol/L BUN 28 H (9-20) mg/dL Creatinine 0.7 L (0.8-1.5) mg/dL Glucose 224 H (75-100) mg/dL Calcium 7.7 L (8.4-10.2) mg/dL AST 86 H (5-40) units/L ALT 27 (7-56) units/L Alkaline Phosphatase 438 H (35-129) units/L Total Protein 5.5 L (6.3-8.2) g/dL Albumin 2.1 L (3.9-5) g/dL Calcium panel 03/29/17 Range/Units 04:03 Calcium 7.7 L (8.4-10.2) mg/dL Albumin 2.1 L (3.9-5) g/dL Pituitary panel 03/29/17 Range/Units 04:03 Sodium 135 L (137-145) mmol/L Potassium 4.4 (3.6-5.0) mmol/L Chloride 102.7 (98-107) mmol/L Carbon Dioxide 19 L (22-30) mmol/L BUN 28 H (9-20) mg/dL Creatinine 0.7 L (0.8-1.5) mg/dL Glucose 224 H (75-100) mg/dL Calcium 7.7 L (8.4-10.2) mg/dL Adrenal panel 03/29/17 Range/Units 04:03 Sodium 135 L (137-145) mmol/L Potassium 4.4 (3.6-5.0) mmol/L Chloride 102.7 (98-107) mmol/L Carbon Dioxide 19 L (22-30) mmol/L BUN 28 H (9-20) mg/dL Creatinine 0.7 L (0.8-1.5) mg/dL Glucose 224 H (75-100) mg/dL Calcium 7.7 L (8.4-10.2) mg/dL Total Bilirubin 5.60 H (0.1-1.2) mg/dL AST 86 H (5-40) units/L ALT 27 (7-56) units/L Alkaline Phosphatase 438 H (35-129) units/L Total Protein 5.5 L (6.3-8.2) g/dL Albumin 2.1 L (3.9-5) g/dL - Imaging Chest x-ray: image reviewed CT scan - chest: image reviewed Assessment and Plan He has a persistent and recurrent left sided pleural effusion which is most like malignant in nature. I discussed his options which are no intervention, thoracentsis, left chest tube placement for life and left thoracoscopy with possible decortication and pleuradesis. I reviewed the risks and benefits with him via his daughter who interpreted. The risks of the surgery include but are not limited to bleeding, infection, injury to adjacent organs in the chest, persistent and recurrent effusion, and chronic pain. I told them the success rate of eliminating the effusion with pleuradesis for malignant effusion is abouit 80% and that he may still need a chest tube for drainage for life. Their questions were answered and they wish to proceed with the surgical option of left thoracoscopy with possible decortication and pleuradesis with talc. The consent form has been signed. I will cancel the scheduled thoracentesis for tomorrow. He will be NPO except meds after midnight tonight. ATBx to be continued VTE prophylaxis continued.
[2017-03-29] MEDS ORDERED: ANCEF/STERILE WATER 2 GM/20 ML 2 GM/20 ML SYRINGE IV NR (16:00)
[2017-03-29] MEDS ORDERED: DECADRON IV NR (16:00)
--- NOTE | 2017-03-29 16:11 | Progress Note ---
Assessment and Plan Recurrent left pleural effusion - suspected Empyema of lung IV Zosyn and Vancomycin for now Consulted Dr Dov Gomez, plan for thoracoscopy tomorrow Sepsis Cont IV Zosyn and Vancomycin severe anemia - s/p 3 units PRBC - Will follow H and H Pancreatic cancer Stge 4, Poor prognosis pt full code now Malnutrition Sec to Malignancy and Metastasis nutrition consulted DVT px on Lovenox Subjective Date of service: 03/29/17 Interval history: pt seen and examined getting PRBC transfusion discussed with daughter at bedside Had thoracenthesis about 4 times in the past Objective - Exam Narrative Exam: General appearance: Present: no acute distress, well-nourished - EENT Eyes: Present: PERRL ENT: hearing intact, clear oral mucosa - Neck Neck: Present: supple, normal ROM - Respiratory Respiratory effort: normal Respiratory: right: CTA, left: diminished - Cardiovascular Heart rate: 90 Rhythm: regular Heart Sounds: Present: S1 & S2. Absent: rub, click - Extremities Extremities: pulses symmetrical, No edema Peripheral Pulses: within normal limits - Abdominal General gastrointestinal: Present: soft, tender, distended, normal bowel sounds Male genitourinary: Present: normal - Rectal Rectal Exam: deferred - Integumentary Integumentary: Present: clear, warm, dry - Musculoskeletal Musculoskeletal: gait normal, strength equal bilaterally - Psychiatric Psychiatric: appropriate mood/affect, intact judgment & insight - Neurologic Neurologic: CNII-XII intact, moves all extremities - Constitutional Vitals: Vital Signs - 12hr 03/29/17 03/29/17 03/29/17 05:25 07:16 07:45 Temperature 98.4 F 97.8 F Pulse Rate 100 H 101 H Respiratory 20 22 18 Rate Blood Pressure 112/60 114/64 O2 Sat by Pulse Oximetry 03/29/17 03/29/17 03/29/17 08:00 08:15 08:45 Temperature 97.8 F 97.8 F 97.4 F L Pulse Rate 101 H 101 H 99 H Respiratory 18 18 18 Rate Blood Pressure 114/64 114/66 122/64 O2 Sat by Pulse 97 Oximetry 03/29/17 03/29/17 03/29/17 09:15 09:30 09:45 Temperature 97.6 F 97.7 F 98.1 F Pulse Rate 102 H 102 H 104 H Respiratory 18 20 20 Rate Blood Pressure 118/64 110/70 121/68 O2 Sat by Pulse Oximetry - Labs CBC & Chem 7: 03/29/17 22:53 03/29/17 04:03 Labs: Abnormal lab results 03/29/17 03/29/17 03/29/17 Range/Units 04:03 04:03 14:09 WBC 21.4 H (4.5-11.0) K/mm3 RBC 2.15 L (3.65-5.03) M/mm3 Hgb 6.7 L 7.7 L (11.8-15.2) gm/dl Hct 20.4 L 23.3 L (35.5-45.6) % MCV 95 H (84-94) fl RDW 22.5 H (13.2-15.2) % Plt Count 118 L (140-440) K/mm3 Lymphocytes % (Manual) 9.0 L (13.4-35.0) % Nucleated RBC % 19.0 H (0.0-0.9) % Seg Neutrophils # Man 11.3 H (1.8-7.7) K/mm3 Monocytes # (Manual) 1.5 H (0.0-0.8) K/mm3 Sodium 135 L (137-145) mmol/L Carbon Dioxide 19 L (22-30) mmol/L BUN 28 H (9-20) mg/dL Creatinine 0.7 L (0.8-1.5) mg/dL Glucose 224 H (75-100) mg/dL Calcium 7.7 L (8.4-10.2) mg/dL Total Bilirubin 5.60 H (0.1-1.2) mg/dL AST 86 H (5-40) units/L Alkaline Phosphatase 438 H (35-129) units/L Total Protein 5.5 L (6.3-8.2) g/dL Albumin 2.1 L (3.9-5) g/dL
--- NOTE | 2017-03-29 16:53 | Anesthesia Consultation ---
Anesthesia Consult and Med Hx Date of service: 03/30/17 - Airway Anesthetic Teeth Evaluation: Good ROM Head & Neck: Adequate Mental/Hyoid Distance: Adequate Mallampati Class: Class I Intubation Access Assessment: Good - Pulmonary Exam CTA: Yes - Cardiac Exam Cardiac Exam: RRR - Pre-Operative Health Status ASA Pre-Surgery Classification: ASA3 Proposed Anesthetic Plan: General - Pulmonary Hx Smoking: Yes (Quit 1 year ago, after diagnosis) Hx Asthma: No COPD: No Hx Pneumonia: No - Gastrointestinal Hx Gastroesophageal Reflux Disease: Yes - Endocrine Hx End Stage Renal Disease: No Hx Cirrhosis: Yes - Hematic Hx Anemia: Yes - Other Systems Hx Cancer: Yes (Pancreatic) - Additional Comments Anesthesia Medical History Comments: No previous anesthesia complications. Family member translates for him; but he signs his own forms.
[2017-03-29] MEDS ORDERED: NACL 0.9% 500 ML 500 ML ONE (17:30)
[2017-03-29 23:12] LABS: Hemoglobin 8.3 gm/dl (11.8-15.2)
[2017-03-30] MEDS: ZOSYN/NS 4.5GM/100ML 4.5 GM/100 ML VIAL IV SCH ×2 (01:54→09:58)
[2017-03-30] MEDS: MORPHINE PO SCH ×3 (01:57→10:00)
[2017-03-30 05:14] LABS: Hemoglobin 8.1 gm/dl (11.8-15.2); Mean Corpuscular HGB Conc 34 % (32-34); Mean Corpuscular Hemoglobin 31 pg (28-32); Mean Corpuscular Volume 92 fl (84-94); Red Blood Count 2.62 M/mm3 (3.65-5.03)
[2017-03-30] MEDS: COMPAZINE PO SCH (05:20)
[2017-03-30 05:28] LABS: Red Cell Distribution Width 21.6 % (13.2-15.2); White Blood Count 24.5 K/mm3 (4.5-11.0)
[2017-03-30 05:29] LABS: Anion Gap 20 mmol/L; Blood Urea Nitrogen 21 mg/dL (9-20); Calcium 7.9 mg/dL (8.4-10.2); Carbon Dioxide 18 mmol/L (22-30); Glucose 154 mg/dL (75-100); Potassium 3.9 mmol/L (3.6-5.0); Sodium 136 mmol/L (137-145)
[2017-03-30 06:35] LABS: Anisocytosis 3+; Basophils % (Manual) 0 % (0.0-1.8); Blastocytes % (Manual) 0 %; Eosinophils % (Manual) 0 % (0.0-4.3); Hypochromasia 1+; Poikilocytosis 1+; Polychromasia 1+; Schistocytes Rare
[2017-03-30 06:36] LABS: Diff Status Complete; Large Platelets Few; Platelet Estimate Consistent w Auto
[2017-03-30 06:37] LABS: Platelet Count 88 K/mm3 (140-440)
[2017-03-30] MEDS: VANCOMYCIN/NS 1 GM/250 ML 1 GM/250 ML BAG IV SCH (09:59)
[2017-03-30] MEDS: LOVENOX SUB-Q SCH (10:00)
[2017-03-30] MEDS ORDERED: QUELICIN ONE (11:23)
[2017-03-30] MEDS ORDERED: XYLOCAINE MPF 2% ONE (11:23)
[2017-03-30] MEDS ORDERED: SUBLIMAZE ONE (11:24)
[2017-03-30] MEDS ORDERED: DIPRIVAN 10 MG/ML IV ONE (11:24)
[2017-03-30] MEDS ORDERED: [UNRECOGNIZED DRUG - OTHER] IX ONE ×2 (11:36→12:00)
[2017-03-30] MEDS ORDERED: XYLOCAINE 2% INFILTRATI ONE ×2 (11:37→13:40)
[2017-03-30] MEDS ORDERED: MARCAINE-EPI/PF 0.25%-1:200,000 INFILTRATI ONE ×2 (11:37→11:38)
[2017-03-30] MEDS ORDERED: NACL 0.9% 1000 ML 1,000 ML ONE ×2 (12:02→15:07)
[2017-03-30] MEDS ORDERED: DILAUDID IV PRN (12:37)
--- NOTE | 2017-03-30 12:37 | Anesthesia Day of Surgery ---
Anesthesia Day of Surgery - Day of Surgery Patient Examined: Yes Patient H&P Reviewed: Yes Patient is NPO: Yes
--- NOTE | 2017-03-30 12:42 | Progress Note ---
Assessment and Plan - Patient Problems (1) Pleural effusion on left Current Visit: Yes Status: Acute Plan to address problem: - for VATS + pleurodesis today - supplemental oxygen for sats >/= 94% - will re-evaluate later if comes out of OR on ventilator - analegesia (2) Pancreatic cancer Current Visit: Yes Status: Chronic Qualifiers: Pancreatic malignancy location: body of pancreas Qualified Code(s): C25.1 - Malignant neoplasm of body of pancreas Plan to address problem: - per oncologist Subjective Date of service: 03/30/17 Principal diagnosis: Left Pleural Effusion; H/O Metastatic Pancreatic CA Interval history: Seen and examined at bedside; 24 hour events reviewed; nursing and respiratory care staff consulted; no adverse overnight events reported to me; to go to OR today for VATS + pleurodesis Objective Vital Signs - 12hr 03/30/17 03/30/17 01:00 07:00 Temperature 98.5 F 99.8 F H Pulse Rate 112 H 105 H Respiratory 18 20 Rate Blood Pressure 122/75 131/78 O2 Sat by Pulse 97 98 Oximetry Constitutional: no acute distress Eyes: non-icteric ENT: oropharynx moist Neck: supple Effort: mildly labored Ascultation: Right: clear, Bilateral: diminished breath sounds Cardiovascular: regular rate and rhythm Gastrointestinal: normoactive bowel sounds, soft, non-tender, non-distended Integumentary: normal Extremities: no cyanosis, no edema, pulses normal, no ischemia or petechiae Neurologic: normal mental status, non-focal exam, pupils equal and round, motor strength normal and Psychiatric: mood appropriate, affect normal CBC and BMP: 03/30/17 04:28 03/30/17 04:28 ABG, PT/INR, D-dimer: PT/INR, D-dimer PT 20.1 Sec. (12.2-14.9) H 03/28/17 12:35 INR 1.62 (0.87-1.13) H 03/28/17 12:35 D-Dimer > 28168 ng/mlDDU (0-234) H 03/28/17 12:35 Abnormal lab findings: Abnormal Labs 03/29/17 03/29/17 03/29/17 04:03 04:03 14:09 WBC 21.4 H RBC 2.15 L Hgb 6.7 L 7.7 L Hct 20.4 L 23.3 L MCV 95 H RDW 22.5 H Plt Count 118 L Lymphocytes % (Manual) 9.0 L Monocytes % (Manual) Nucleated RBC % 19.0 H Seg Neutrophils # Man 11.3 H Monocytes # (Manual) 1.5 H Sodium 135 L Carbon Dioxide 19 L BUN 28 H Creatinine 0.7 L Glucose 224 H Calcium 7.7 L Total Bilirubin 5.60 H AST 86 H Alkaline Phosphatase 438 H Total Protein 5.5 L Albumin 2.1 L 03/29/17 03/30/17 03/30/17 22:53 04:28 04:28 WBC 24.5 H RBC 2.62 L Hgb 8.3 L 8.1 L Hct 25.0 L 24.0 L MCV RDW 21.6 H Plt Count 88 L Lymphocytes % (Manual) 5.0 L Monocytes % (Manual) 8.0 H Nucleated RBC % 12.0 H Seg Neutrophils # Man 10.8 H Monocytes # (Manual) 2.0 H Sodium 136 L Carbon Dioxide 18 L BUN 21 H Creatinine 0.5 L Glucose 154 H Calcium 7.9 L Total Bilirubin AST Alkaline Phosphatase Total Protein Albumin
[2017-03-30 13:12] VITALS: BP 130/75
[2017-03-30] MEDS ORDERED: DECADRON ONE (13:37)
[2017-03-30] MEDS ORDERED: MARCAINE-EPI 0.25%-1:200,000 INFILTRATI ONE (13:40)
[2017-03-30] MEDS ORDERED: NACL 0.9% IR ONE ×2 (13:40)
[2017-03-30] MEDS ORDERED: NACL 0.9% 1000 ML 1,000 ML IV SCH (14:00)
[2017-03-30] MEDS ORDERED: ePHEDrine SULFATE ONE (15:00)
[2017-03-30] MEDS ORDERED: NEO SYNEPHRINE ONE (15:10)
[2017-03-30] MEDS ORDERED: ADRENALIN ONE ×2 (16:00→16:22)
[2017-03-30] MEDS ORDERED: CALCIUM CHLORIDE IV ONE (16:00)
[2017-03-30] MEDS ORDERED: NACL 0.9% 100 ML ONE (16:22)
--- NOTE | 2017-03-30 16:22 | Discharge Summary ---
Providers - Providers Date of Admission: 03/28/17 21:58 Date of discharge: 03/30/17 Attending physician: MAX RUIZ 03/29/17 15:50 Consult to Anesthesiology [CONS] Routine Consulting Provider: LARISSA ANESTHESIA KEVIN SERVIN Reason For Exam: PREOP Primary care physician: HOSTAGE NEGOTIATOR Hospitalization Condition: Serious Hospital course: Summary: Disposition: DC-20 Exam - Constitutional Vitals: Temp Pulse Resp BP Pulse Ox 100.7 F H 102 H 20 130/75 98 03/30/17 11:25 03/30/17 11:25 03/30/17 11:25 03/30/17 11:25 03/30/17 11:25 Plan Follow up with: PRIMARY MD LOLA [Primary Care Provider] - 3-5 Days
--- NOTE | 2017-03-30 16:23 | Death Summary ---
Summary - Providers Date of service: 03/30/17 Consults: 03/29/17 15:50 Consult to Anesthesiology [CONS] Routine Consulting Provider: KEVIN GREY Reason For Exam: PREOP Attending: MAX RUIZ - summary Date of admission: 03/28/17 21:58 Date of : 03/28/17 - Final diagnosis (1) Anemia Qualifiers: Anemia type: unspecified type Iron deficiency anemia type: I Vitamin B12 deficiency anemia type: V Folate deficiency anemia type: F Bone marrow failure anemia type: B Hemolytic anemia type: H Other causes of anemia: O Chronic kidney disease stage: C Qualified Code(s): D64.9 - Anemia, unspecified Note: Final diagnosis: (2) Empyema of lung Note: Final diagnosis: (3) Leukocytosis Qualifiers: Leukocytosis type: bandemia Qualified Code(s): D72.825 - Bandemia Note: Final diagnosis: (4) Metastasis Qualifiers: Area of secondary neoplastic involvement: unspecified site Lymph node location: L Respiratory structure secondary neoplasm location: R Digestive structure secondary neoplasm location: D Urinary structure secondary neoplasm location: U Nervous system structure secondary neoplasm location: N Laterality: L Qualified Code(s): C79.9 - Secondary malignant neoplasm of unspecified site Note: Final diagnosis: (5) Sepsis Qualifiers: Sepsis type: sepsis due to unspecified organism Qualified Code(s): A41.9 - Sepsis, unspecified organism Note: Final diagnosis: (6) Malnutrition Qualifiers: Malnutrition type: M Protein-calorie malnutrition severity: moderate Qualified Code(s): E44.0 - Moderate protein-calorie malnutrition Note: Final diagnosis: (7) Pancreatic cancer Qualifiers: Pancreatic malignancy location: body of pancreas Qualified Code(s): C25.1 - Malignant neoplasm of body of pancreas Note: Final diagnosis:
[2017-03-30] MEDS ORDERED: ZEMURON IV ONE (16:24)
--- NOTE | 2017-03-30 16:31 | Post Operative Note ---
Pre-op diagnosis: Left pleural effusion Post-op diagnosis: same Findings: Large amount of bloody effusion consistent with malignant effusion; entrapped left lung by fibrosis Procedure: L thorascopy with evacuation of effusion and decortication Anesthesia: LUCIE, local Surgeon: PIEDAD LIAM Estimated blood loss: other (200cc) Pathology: list (fluid was to be sent for culture and cytology) Specimen disposition: discarded Condition: Disposition: other ()
--- NOTE | 2017-03-30 16:53 | Event Note ---
Date: 03/30/17 Patient is a 47 yo M with pancreatic cancer, cirrhosis and left pleural effusion going for Left VATS. Induction was uneventful. About 1 hour after induction patient started having low blood pressures and was not responding to vasopressors. Blood was started then pulse started to go down into 30s. There was no pulse and end tidal CO2 was diminishing. Code called and chest compressions started. After multiple rounds of epinephrine and chest compressions code was called after 30 minutes.
--- NOTE | 2017-03-30 22:01 | Consultation ---
PULMONARY CONSULT NOTE This is a late dictation. CONSULTING PHYSICIAN: Dr. Nova. REASON FOR CONSULTATION: Empyema. CHIEF COMPLAINT AND HISTORY OF PRESENT ILLNESS: As follows: The patient is an unfortunate 47-year-old male with past medical history significant for metastatic pancreatic cancer, reported as stage III with recurrent left pleural effusions. He apparently was on his way to [facility] for another thoracentesis and became very nauseated, run to the bathroom, he became short of breath. EMS was called. He was hypoxemic. He was brought into the Emergency Room. In the Emergency Room, he was stabilized, but also indeed found to have a large pleural effusion that actually looked pretty chronic in nature. It had a thick rind around it. As a result of his symptoms, he was admitted to the hospital. We are asked to assist with evaluation. When I stopped by to see him, he was resting peacefully in bed, feeling a little bit better, not on oxygen at that time, still with some difficulty breathing. He denied any gross or streaky hemoptysis. He denied fevers or chills. He is no longer smoking. He has about a [id number] tobacco smoking history. That really is as much of the history of presentation as I have. PAST MEDICAL HISTORY: Pancreatic cancer, metastatic; tobacco use disorder. PAST SURGICAL HISTORY: He has had resection of a part of his pancreas. MEDICATIONS: He was on at the time I stopped by to see him, according to the medication administration record included the following: Tylenol 650 mg p.o. q. 4 hours p.r.n. mild pain, Lovenox 40 mg subcutaneous daily, Dilaudid 2 mg IV q. 3 hours p.r.n. severe pain, milk of magnesia p.r.n., morphine 15 mg p.o. q. 4 hours scheduled, Zofran 4 mg IV q. 3 hours p.r.n. nausea and vomiting, Zosyn 4.5 grams IV q. 8 hours, Compazine 10 mg p.o. q. 8 hours scheduled, vancomycin 1 gram IV q. 12 hours. ALLERGIES: No known drug allergies. DIET: Well-built gentleman. Denies significant weight loss or gain in the preceding few weeks to months. FAMILY AND SOCIAL HISTORY: Lives in the community. A 10+ pack-year remote tobacco smoking history. Denies current alcohol, tobacco, or illicit drug use or abuse. Family history otherwise noncontributory. REVIEW OF SYSTEMS: No loss of consciousness. No new onset seizures. No new onset focal weakness. No gross hematochezia or melena. No gross hematuria or dysuria. No hematemesis. No hemoptysis. Complete 13-system review of systems was obtained. Pertinent positives and/or negatives as in body of history above, otherwise it is noncontributory. PHYSICAL EXAMINATION: VITAL SIGNS: At presentation, he was febrile, temperature 100.6 degrees Fahrenheit with a pulse of 140, respiratory rate of 34, blood pressure 129/80, oxygen sats 100%, inspired oxygen concentration was not recorded. HEAD, EYES, EARS, NOSE AND THROAT: Pupils are equal, round, about 3 mm, reactive to light. Extraocular muscle movements are intact. Grossly, there were no palpable lymph nodes in the supraclavicular or submandibular lymph node chains. Oropharynx is a Mallampati #2 oropharynx. No significant posterior oropharyngeal erythema. LUNGS: Auscultation of both lung leonardo significant for diminished left lung breath sounds, a little bit of air entry in the left upper lobe. No wheezing. HEART: Heart sounds 1 and 2 were heard. They were regular in rate and rhythm at time of my evaluation. ABDOMEN: Soft, flat. Bowel sounds are positive, nontender. EXTREMITIES: Without overt digital clubbing, cyanosis, or pedal edema. NEUROLOGIC: The exam was grossly nonfocal. LABORATORY DATA: From my review as follows: Admission white cell count was 27,100 with a hemoglobin of 5.5, hematocrit of 18.0, platelet count of 167. INR was 1.62. D-dimer was elevated. Serum sodium 135, potassium 5.2, chloride 100, bicarbonate 17, BUN 31, creatinine 1.2, glucose of 148. Lactic acid level was 4.2. That is around to 1.8. Total bilirubin 4.2, AST 99. Albumin was 2.4. Urinalysis negative for nitrites and leukocyte esterase. Microbiology: Blood cultures, no growth x 24 hours. Blood cultures no growth to date. Radiographic studies have been reviewed. I have also reviewed the radiologist's interpretation. I do agree with them. The main finding really is the large left pleural effusion with air bubbles suggestion of possible and empyema or complex/complicated effusion with compressive atelectasis of the whole left lung. No PEs were found and there was good opacification of the pulmonary artery main trunks. Some pulmonary nodules in the right lung as well as a mixed lesions throughout the dorsal spine consistent with metastatic disease. ASSESSMENT AND PLAN: We have an unfortunate middle-aged gentleman currently being managed for metastatic pancreatic cancer and I do agree he will benefit more so from intervention by cardiothoracic surgeon, probably will benefit from a video-assisted thoracoscopic surgery with pleurodesis and hopefully we get good that he had been told this in the past, but the plan was to treat him with chemotherapy before they went ahead and did a pleurodesis. Otherwise, oxygen will be given to keep sats greater than or equal to about 92-94%. Aspiration precautions will be maintained. He will be placed on bilevel positive airway pressure ventilation therapy if he does develop increased work of breathing. I am going to start him on GI prophylaxis. He is on DVT prophylaxis. Flu and pneumonia vaccination will be per protocol. Thank you very much for the consult, Dr. Nova. We will follow along. We will make further recommendations as picture progresses/becomes clearer. JOB# [id number] SOMMER/CELESTE
--- NOTE | 2017-03-31 00:38 | Operative Report ---
PREOPERATIVE DIAGNOSIS: Left pleural effusion. POSTOPERATIVE DIAGNOSES: Left pleural effusion consistent with malignant effusion and entrapped left lung. PROCEDURE: Left thoracoscopic exploration with evacuation of left pleural effusion and decortication of an entrapped left lung. SURGEON: Dov Gomez MD ANESTHESIA: General and local. ESTIMATED BLOOD LOSS: 200 mL plus several liters of malignant effusion. SPECIMEN: Fluid was to be sent off for cytology and culture. FINDINGS: Large amount of bloody effusion in the left chest with a lot of fibrinous exudate and gelatinous material throughout consistent with malignant effusion and the left lung was completely entrapped in fibrotic casing. COMPLICATIONS: Intraoperative . INDICATIONS: This is a 47-year-old gentleman who is having difficulty breathing and maintaining his oxygen saturations due to a very large recurrent persistent left pleural effusion that has his lung collapsed. He presents now for a left thoracoscopic exploration, evacuation of the effusion, possible decortication and then pleurodesis with chest tube placement. DESCRIPTION OF PROCEDURE: The patient was brought to the operating room, identified, and placed in the supine position. General anesthesia was achieved, he was then positioned in the right lateral decubitus position with care being taken to protect all the pressure points and protect all the joints. The left chest was then prepped and draped in usual manner. Prior to any incision, the area was injected with 0.25% Marcaine. A mid axillary 5 mm incision was made at approximately the fifth to sixth intercostal space. We entered the thorax just above the rib and then evacuated some bloody pleural effusion that was dark maroon in color. It was very cloudy, though not frankly purulent. These were placed in two specimen containers, one was to be sent for culture and one was to be sent to cytology. We then allowed several liters of this fluid to drain out of the chest via the port. I then introduced a 45 degree 5 mm telescope and placed the other ports under direct vision in the posterior axillary line in the lower seventh intercostal space and one in the left intrascapular area at approximately sixth intercostal space. The patient was found to have a lot of bloody malignant effusion throughout the entire chest with fibrinous material throughout. It was not nichole pus, but there was a lot of gelatinous material mixed in with this bloody malignant appearing fluid. We evacuated all this fluid and the lung was found to be completely encased. We had opened up all the ports and had Anesthesia try to ventilate but the lung would not expand on its own; therefore I proceeded to do a decortication to allow the lung to reexpand. I did this with the thoracoscopic instruments by finding an edge of the lung and upon entering it I started to peel this fibrinous material off of the surface of the lung. As we did this, the lung was parenchyma was normal and starting to expand. There was generalized oozing from the surface of the lung as we peeled this material fibrin off the lung itself. We had the decortication almost completely done when Anesthesia informed us that they were having difficulty ventilating suddenly and then he quickly went asystolic and they lost the blood pressure. We removed our instruments from the chest immediately. Removed the drapes, placed him in a supine position and started ACLS protocols. Please see the notes from the OR for the details on this, but despite 30 minutes of aggressive ACLS protocols, we were not able to get a return of any sort of blood pressure or electrical activity. He at approximately 3:45 p.m. from what I presume is a massive pulmonary embolism. I subsequently informed the family of the operative events and my impression. JOB# [id number] BADNAR/CELESTE JOLLY
[2017-03-31] MEDS ORDERED: PEPCID PO SCH (10:00)
== END 2017-03-30 15:46 | DRG 853 ==
LOC: ED 11:52 → 3A 21:58
PROVIDERS: ADMIT Internal Medicine; ATTEND Internal Medicine
PROC: 30233N1 Transfusion of Nonautologous Red Blood Cells into Peripheral Vein, Percutaneous Approach (ICD-10-PCS; 2017-03-28)
PROC: 0BDP4ZZ Extraction of Left Pleura, Percutaneous Endoscopic Approach (ICD-10-PCS; principal; 2017-03-30)
PROC: 0B9P4ZZ Drainage of Left Pleura, Percutaneous Endoscopic Approach (ICD-10-PCS; 2017-03-30)
DX: A41.9 Sepsis, unspecified organism (principal); J86.9 Pyothorax without fistula; C25.9 Malignant neoplasm of pancreas, unspecified; J90 Pleural effusion, not elsewhere classified; E46 Unspecified protein-calorie malnutrition; K74.60 Unspecified cirrhosis of liver; D72.829 Elevated white blood cell count, unspecified; K21.9 Gastro-esophageal reflux disease without esophagitis; D64.9 Anemia, unspecified; Z85.07 Personal history of malignant neoplasm of pancreas; Z86.718 Personal history of other venous thrombosis and embolism; Z87.891 Personal history of nicotine dependence; Z68.26 Body mass index [BMI] 26.0-26.9, adult
CPT/HCPCS: 36415; 71010; 71275; 80048; 80053; 80074; 81001; 82140; 84484; 85007; 85014; 85018; 85025; 85379; 85610; 85730; 86850; 86900; 86901; 86920; 87040; 87086; 93005; 93010; 96361; 96365; 96366; 96367; 96375; 99291; A4217; C9250; J0171; J0330; J1100; J1170; J1650; J1956; J2270; J2370; J2405; J2543; J2704; J3010; J3370; J7030; J7040; J7042; J7050; P9016; Q0164; Q9967